=== PATIENT | female | born 1955 | race African-American/Black ===

== ENCOUNTER 2024-03-25 20:28 | Emergency (ER) | payer MEDICARE, OTHER ==
[~2024-03-25] VITALS: Ht 170.2 cm; Wt 90.7 kg
[2024-03-25] MEDS: IV NORMAL SALINE 500 ML BAG IV ONE (21:35)
[2024-03-25 21:40] LABS: CALCIUM 8.8 mg/dL (8.5-10.1); CARBON DIOXIDE 30 mmol/L (21-32); CHLORIDE 111 mmol/L (98-107); CREATININE 1.5 mg/dL (0.6-1.3); GLUCOSE 82 mg/dL (74-106); POTASSIUM 4.2 mmol/L (3.5-5.1); SODIUM SERUM 148 mmol/L (136-145); UREA NITROGEN, BLOOD 29 mg/dL (7-18)
[2024-03-25 21:41] LABS: BASOPHILS % (AUTO) 0.7 % (0.0-2.0); EOSINOPHILS # (AUTO) 0.2 K/uL (0.0-0.7); EOSINOPHILS % (AUTO) 6.1 % (0.0-7.0); HEMOGLOBIN 12.2 g/dL (10.9-14.3); LYMPHOCYTES # (AUTO) 1.8 K/uL (0.8-4.8); LYMPHOCYTES % (AUTO) 45.6 % (20.5-51.5); MEAN CORPUSCULAR HEMOGLOBIN 27.1 uug (24.7-32.8); MEAN CORPUSCULAR HGB CONC 31 g/dL (32.3-35.6); MEAN CORPUSCULAR VOLUME 86.7 fL (75.5-95.3); MONOCYTES # (AUTO) 0.3 K/uL (0.1-1.30); MONOCYTES % (AUTO) 8.3 % (0.0-11.0); NEUTROPHILS # (AUTO) 1.5 K/uL (1.8-8.9); NEUTROPHILS % (AUTO) 39.3 % (38.5-71.5); PLATELET COUNT (AUTO) 155 K/uL (179-408); RED BLOOD CELL COUNT(AUTO) 4.49 MIL/uL (3.63-4.92); RED CELL DISTRIBUTION WIDTH 14.6 % (12.3-17.7); WHITE BLOOD COUNT (AUTO) 3.9 K/uL (3.8-11.8)
[2024-03-25 21:48] LABS: ALANINE AMINOTRANSFERASE 9 U/L (14-59); ALBUMIN 3.3 g/dL (3.4-5.0); ALKALINE PHOSPHATASE 48 U/L (50-136); ASPARTATE AMINOTRANSFERASE < 5 U/L (15-37); BILIRUBIN,DIRECT 0.2 mg/dL (0.0-0.2); BILIRUBIN,TOTAL 0.8 mg/dL (0.2-1.0); TOTAL PROTEIN, SERUM 6.8 g/dL (6.4-8.2)
[2024-03-25] MEDS ORDERED: ASPI81TA31 PO (22:05)
[2024-03-25] MEDS ORDERED: FURO40TA5 PO (22:05)
[2024-03-25] MEDS ORDERED: CARV3.122 PO (22:05)
[2024-03-25] MEDS ORDERED: BIMA2.5D5 EACHEYE (22:05)
[2024-03-25] MEDS ORDERED: ALBU8.5H8 IH (22:05)
[2024-03-25] MEDS ORDERED: APIX5TAB PO (22:05)
[2024-03-25] MEDS ORDERED: DAPA10TA PO (22:05)
[2024-03-25] MEDS ORDERED: QUET25TA PO (22:05)
[2024-03-25] MEDS ORDERED: BRIM5DRO11 (22:05)
[2024-03-25] MEDS ORDERED: ATOR20TA PO (22:05)
[2024-03-25] MEDS ORDERED: AMLO-212 PO (22:05)
[2024-03-25 22:50] LABS: *BILIRUBIN,URIN NEGATIVE (NEGATIVE); *BLOOD, URINE 1+ (NEGATIVE); *CLARITY,URINE CLOUDY (CLEAR); *COLOR,URINE YELLOW (YELLOW); *KETONES,URINE NEGATIVE (NEGATIVE); *PROTEIN,URINE TRACE (NEGATIVE); *UROBILINOGEN,URINE 0.2 E.U./dl (NORMAL); LEUKOCYTE ESTERASE ,URINE 3+ (NEGATIVE); NITRITE, URINE NEGATIVE (NEGATIVE); PH,URINE 5.5 (5.0-8.0); UGLUCOSE 1+ (NEGATIVE)
[2024-03-25 23:03] LABS: BACTERIA,URINE FEW /HPF (NONE SEEN); MUCUS,URINE FEW /LPF (0-FEW); SQUAMOUS EPITHELIAL CELL,UR FEW /HPF (NONE SEEN); WBC,URINE 20-50 /HPF (0-3)
[2024-03-25] MEDS ORDERED: CEFTRIAXONE /D5W 50ML IVPB **ER PYXIS IV ONE (23:04)
[2024-03-25] MEDS: SODIUM CHLORIDE IV ONE (23:10)
[2024-03-25] MEDS: CEFTRIAXONE 1 G in IV DEXTROSE 5% 50 ML IV ONE (23:10)
[2024-03-26] MEDS ORDERED: DIVA500T2 PO (01:38)
[2024-03-26] MEDS ORDERED: OLAN10TA3 PO (01:38)
[2024-03-26] MEDS ORDERED: BRIM10DR6 LEFTEYE (01:38)
[2024-03-26] MEDS ORDERED: CLOT15CR27 TP (01:38)
[2024-03-26] MEDS ORDERED: NETA2.5D3 OP (01:38)
[2024-03-26] MEDS ORDERED: IPRA12.9 IH (01:38)
[2024-03-26] MEDS ORDERED: PRAS10TA5 PO (01:38)
[2024-03-26] MEDS ORDERED: ALBU18HF2 IH (01:38)
[2024-03-26] MEDS ORDERED: MEMA10TA PO (01:38)
[2024-03-26] MEDS ORDERED: OLAN5TAB3 PO (01:38)
[2024-03-26] MEDS ORDERED: MAGN400O6 PO (01:38)
[2024-03-26] MEDS ORDERED: PANT40TA49 PO (01:38)
[2024-03-26] MEDS ORDERED: TAMS-3 PO (01:38)
[2024-03-26] MEDS ORDERED: ACET-73 PO (01:38)
[2024-03-26] MEDS ORDERED: DORZ10DR13 LEFTEYE (01:38)
[2024-03-26 02:53] VITALS: O2SAT 96
== END 2024-03-26 03:14 | disposition short-term general hospital (02) ==
LOC: ER 20:30 → EDBD 20:30 → ER 03-26 03:14
DX: R41.82 Altered mental status, unspecified (principal); R53.1 Weakness; N39.0 Urinary tract infection, site not specified; G93.41 Metabolic encephalopathy; F03.90 Unspecified dementia, unspecified severity, without behavioral disturbance, psychotic disturbance, mood disturbance, and anxiety; E87.0 Hyperosmolality and hypernatremia; R79.89 Other specified abnormal findings of blood chemistry; R07.89 Other chest pain; R94.4 Abnormal results of kidney function studies; Z88.0 Allergy status to penicillin; Z88.5 Allergy status to narcotic agent; Z88.8 Allergy status to other drugs, medicaments and biological substances; Z79.82 Long term (current) use of aspirin; Z79.899 Other long term (current) drug therapy
CPT/HCPCS: 99285; 96365; 70450; 71045; 96375; 80076; 80048; 81001; 85025; 85730; 84484; 36415; 93005 ×2; J0696; A4606; A4663